=== PATIENT | female | born 1995 | race Caucasian/White ===

== ENCOUNTER 2024-05-27 08:33 | Emergency (ER) | payer OTHER ==
[~2024-05-27] VITALS: Ht 157.5 cm; Wt 68.2 kg
[2024-05-27 08:49] VITALS: TEMP 98
[2024-05-27] MEDS: LIDOCAINE 1% 10 ML VIAL SQ ONE (11:01)
[2024-05-27] MEDS: PERTUSS(ACELL),DIPH,TET/PF 0.5 ML SYRINGE [ADULT] IM. ONE (11:52)
[2024-05-27 11:55] VITALS: BP 127/77; PULSE 73; RESP 18; O2SAT 99
== END 2024-05-27 12:12 | disposition home or self-care (01) ==
LOC: EMS 08:38
DX: S61.412A Laceration without foreign body of left hand, initial encounter (principal); F12.90 Cannabis use, unspecified, uncomplicated; Z88.0 Allergy status to penicillin; W26.0XXA Contact with knife, initial encounter; Y93.89 Activity, other specified; Y92.89 Other specified places as the place of occurrence of the external cause; Y99.8 Other external cause status
CPT/HCPCS: 99282; 12001; J3490; 90715